=== PATIENT | female | born 1960 | race Caucasian/White ===

== ENCOUNTER 2017-11-24 12:20 | Emergency (ER) | payer OTHER ==
[~2017-11-24] VITALS: Ht 157.5 cm; Wt 83.9 kg
[~2017-11-24 12:20] MED LIST: ACCUPRIL40 MG PO; ACETAMINOPHEN-1 EAC1 PO; COREG3.125 MG PO; DOXYCYCLINE 10100 MG PO; HYDROCODONE-AP1 EAC6 PO; IBUPROFEN 800800 M1 PO; MEDROL DOSPAK21 TA1 PO; MEDROLDOSEPACK PO; PHENERGAN-CODE120 ML PO; PREDNISONE 20 M20 M1 PO; PROTONIX40 M1 PO; PROVENTIL HFA6.7 G1 INH; VENTOLIN HFA 1818 GM INH; VENTOLIN HFA INH8 GM IH; ZPAK PO
[2017-11-24] MEDS ORDERED: KEFLEX500 M1 PO (13:10)
[2017-11-24 13:20] VITALS: BP 198/98
== END 2017-11-24 13:20 | disposition home or self-care (01) ==
LOC: M.ERS 12:20
DX: S50.862A Insect bite (nonvenomous) of left forearm, initial encounter (principal); I10 Essential (primary) hypertension; F17.210 Nicotine dependence, cigarettes, uncomplicated; Z88.0 Allergy status to penicillin; Z98.890 Other specified postprocedural states; W57.XXXA Bitten or stung by nonvenomous insect and other nonvenomous arthropods, initial encounter; Y93.89 Activity, other specified; Y92.89 Other specified places as the place of occurrence of the external cause; Y99.8 Other external cause status